=== PATIENT | male | born 1960 | race American Indian/Alaskan Native ===

== ENCOUNTER 2016-11-03 13:06 | Emergency (ER) | payer MEDICAID, OTHER ==
--- NOTE | 2016-11-03 13:21 | EDM.PDOC ---
ED HPI Trauma - General Chief Complaint: Lower Extremity Injury/Pain Stated Complaint: SLIPPED LEFT ANKLE PAIN Time Seen by Provider: 11/03/16 13:13 Source: Reports: Patient History Limitations: Reports: No limitations - History of Present Illness INITIAL COMMENTS - FREE TEXT/NARRATIVE: This 56 yo male patient reports to the ED with left ankle pain. The patient reports he "rolled his ankle" on Wednesday and has been experiencing increased pain since that time. The patient reports he has been attempting to rest and ice the area, but continues to be in pain. The patient has not been seen in the clinic for this injury at this time. The patient came into the ED using one crutch for support. Symptom Onset Date: 11/01/16 Occurred When: other Occurred Where: home Method of Injury: other Severity: moderate Pain/Injury Location: Reports: lower extremity, left Consciousness: Reports: no loss of consciousness Associated Symptoms: Reports: no other symptoms Allergies/ADRs: Allergies No Known Allergies Allergy (Verified 11/03/16 13:22) Home Medications: Ambulatory Orders . [No Known Home Meds] 11/03/13 [Confirmed 11/03/13] Past Medical History - Past Health History Medical/Surgical History: Denies Medical/Surgical History Social & Family History - Tobacco Use Years of Tobacco use: 30 Second Hand Smoke Exposure: No - Alcohol Use Days Per Week of Alcohol Use: 7 Number of Drinks Per Day: 2 Total Drinks Per Week: 14 - Recreational Drug Use Recreational Drug Use: No Review of Systems - Review of Systems Review Of Systems: ROS reveals no pertinent complaints other than HPI. Trauma Exam - Physical Exam Exam: See Below Exam Limited By: No limitations General Appearance: Reports: alert, WD/WN, moderate distress Head: Reports: atraumatic, normocephalic Eyes: bilateral eye: EOMI, normal inspection, PERRL Ears: Reports: normal external exam, normal canal, hearing grossly normal, normal TMs Nose: Reports: normal inspection, normal mucousa, no blood Throat/Mouth: Reports: Normal inspection, Normal lips, Normal teeth, Normal gums , Normal oropharynx, Normal voice, No airway compromise Neck: Reports: non-tender, full range of motion, normal alignment, normal inspection Respiratory Exam: Reports: no respiratory distress, lungs clear, normal breath sounds Cardiovascular: Reports: normal peripheral pulses, regular rate, rhythm, no edema, no gallop, no JVD, no murmur, no rub GI/Abdominal: Reports: normal bowel sounds, soft, non tender, no organomegaly, no distention, no abnormal bruit, no mass (Male) Exam: Deferred Rectal (Males) Exam: Deferred Back: Reports: full range of motion, normal inspection, non-tender Extremities: Reports: no evidence of injury, normal range of motion, non-tender , no pedal edema, pelvis stable 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, no motor/sensory deficits, alert , normal mood/affect, oriented x 3 Skin: Reports: Normal color, Warm/dry - Edison Coma Score Best Eye Response ([place]): (4) open spontaneously Best Verbal Response ([place]): (5) oriented Best Motor Response ([place]): (6) obeys commands Edison Total: 15 Course - Vital Signs Last Recorded V/S: Last Vital Signs Temp 36.1 C 11/03/16 13:15 Pulse 65 11/03/16 13:15 Resp 18 11/03/16 13:15 BP 160/98 H 11/03/16 13:15 Pulse Ox 98 11/03/16 13:15 - Orders/Labs/Meds Orders: Active Orders 24 hr Category Date Time Status Ankle Min 3V Lt [CR] Urgent Exams 11/03/16 13:16 Ordered Acetaminophen/HYDROcodone [Stephen 325-10 MG] Med 11/03/16 13:35 Once 1 tab PO ONETIME ONE DME for Discharge [COMM] Urgent Oth 11/03/16 13:35 Ordered Departure - Departure Time of Disposition: 13:36 Disposition: Home, Self-Care 01 Condition: fair Clinical Impression: Closed fracture of left distal fibula Qualifiers: Encounter type: initial encounter Fracture morphology: other fracture Qualified Code(s): S82.832A - Other fracture of upper and lower end of left fibula, initial encounter for closed fracture Instructions: Fibular Ankle Fracture Treated With or Without Immobilization, Adult Forms: ED Department Discharge Care Plan Goals: The patient was advised of the examination and x-ray results during the visit. The patient was placed in a walking boot, but instructed to remain non-weight bearing until followed up by an occupational health specialist. The patient was given an oral dose of Stephen while in the ED. The patient was discharged with a script for Stephen (10/325) #20 to take 1 by mouth every 6 hours as needed for pain control. The patient should schedule an appointment with an occupational health specialist for continued evaluation and management. - My Orders Last 24 Hours: My Active Orders 11/03/16 13:16 Ankle Min 3V Lt [CR] Urgent 11/03/16 13:35 Acetaminophen/HYDROcodone [Stephen 325-10 MG] 1 tab PO ONETIME ONE DME for Discharge [COMM] Urgent - Assessment/Plan Last 24 Hours: My Active Orders 11/03/16 13:16 Ankle Min 3V Lt [CR] Urgent 11/03/16 13:35 Acetaminophen/HYDROcodone [Stephen 325-10 MG] 1 tab PO ONETIME ONE DME for Discharge [COMM] Urgent
[2016-11-03 13:22] VITALS: BP 160/98
[2016-11-03] MEDS ORDERED: Acetaminophen/HYDROcodone 325-10 MG Tab PO ONE (13:35)
--- NOTE | 2016-11-03 14:17 | CR ---
Clinical history: 56-year-old male left ankle pain. Interpretation: Bimalleolar soft tissue swelling, ankle joint effusion and acute spiral, minimally d isplaced, distal diametaphyseal fracture left fibula. Note: Asymmetry of the tibiotalar mortise joint consistent with ligamentous injury. No distal tibial fracture. Large spur plantar aponeurosis, base of the os calcis. Conclusion: Acute left fibular fracture and ligamentous injuries ankle.
== END 2016-11-03 14:01 | disposition home or self-care (01) ==
LOC: DL.ED 13:06
DX: S82.832A Other fracture of upper and lower end of left fibula, initial encounter for closed fracture (principal); X50.1XXA Overexertion from prolonged static or awkward postures, initial encounter; Y92.009 Unspecified place in unspecified non-institutional (private) residence as the place of occurrence of the external cause
CPT/HCPCS: 73610; 99283; A9270